=== PATIENT | male | born 1960 | race Caucasian/White ===

== ENCOUNTER → 2017-07-22 | Outpatient (CLI) | payer OTHER ==
[~2017-07-22] MED LIST: IOPAMIDOL (ISOVUE-300) 100 ML BTL ONE
== END ==
LOC: FIMAGING 07:41
PROVIDERS: ATTEND Specialist
DX: K80.20 Calculus of gallbladder without cholecystitis without obstruction (principal); M51.27 Other intervertebral disc displacement, lumbosacral region; Z87.442 Personal history of urinary calculi; Z87.440 Personal history of urinary (tract) infections
CPT/HCPCS: Q9967

== ENCOUNTER 2017-08-17 07:41 | Emergency (ER) | payer OTHER ==
[2017-08-17 07:46] VITALS: O2SAT 97
[2017-08-17] MEDS ORDERED: HYDROmorphONE/DILAUDID 1 MG/ML INJ IVP ONE ×3 (09:12→10:47)
[2017-08-17] MEDS ORDERED: NS 1,000 ML IV ONE (09:12)
[2017-08-17 09:40] LABS: PLATELET COUNT 241 10^3/uL (150-400)
[2017-08-17 10:15] VITALS: RESP 18
[2017-08-17] MEDS ORDERED: HYDROmorphONE/DILAUDID 1 MG/ML INJ ONE (10:39)
[2017-08-17] MEDS ORDERED: GADOBUTROL 10 ML VIAL IVP ONE (10:54)
[2017-08-17] MEDS ORDERED: DEXAMETHASONE 10 MG/ML VIAL IVP ONE (11:50)
[2017-08-17] MEDS ORDERED: OXYCODONE/APAP 5/325MG PREPACK#4 BTL TAKEHOME ONE (11:58)
[2017-08-17] MEDS: KETOROLAC 30 MG/1 ML SDV IVP ONE ×2 (11:58→12:01)
[2017-08-17 12:01] VITALS: BP 138/84; PULSE 72; TEMP 98.6
--- NOTE | 2017-08-17 12:01 | EDPHY ---
H & P Stated Complaint: Has chronic neck problems;exacerbated~3wks;took coarse of steroids w/relie - Personal History Current Tetanus Diphtheria and Acellular Pertussis (TDAP): Yes Tetanus Vaccine Date: within last 10 years - Medical/Surgical History Hx Asthma: No Hx Chronic Respiratory Disease: No Hx Diabetes: No Hx Cardiac Disease: No Hx Renal Disease: No Hx Cirrhosis: No Hx Alcoholism: No Hx HIV/AIDS: Yes Hx Splenectomy or Spleen Trauma: No Other PMH: depression, hiv +. herniated disk in neck. GERD - Social History Smoking Status: Current every day smoker HPI/ROS: Chief complaint: Neck pain with radiation of pain to the left arm History of present illness: This is a 57-year-old male who presents to the emergency department for evaluation of neck pain. Reports he has a history of herniated disc in his neck. He has been a year since he last had problems with his neck pain. The pain began again approximately 3 weeks ago. Reports pain and numbness radiating into his left arm. He denies any specific precipitating factors. He denies alleviating factors. His primary care doctor did put him on a Medrol Dosepak when this 1st began but did not help. He denies other associated signs or symptoms including no history of recent trauma, no fevers, no paresthesias in the parts of body, no weakness or paralysis, bowel or bladder dysfunction. Review of systems: A 10 point review of systems was obtained and other than described above was negative (Alcon Moncada) - Physical Exam Exam: General Appearance: Alert, nontoxic. Eyes: Pupils equal and round no pallor or injection. ENT, Mouth: Mucous membranes moist. Respiratory: There are no retractions, lungs are clear to auscultation. Cardiovascular: Regular rate and rhythm. Gastrointestinal: Abdomen is soft and non tender, no masses, bowel sounds normal. Neurological: Alert and oriented x4. Cranial nerves 2-12 grossly intact. Strength and sensation appears intact in the upper and lower extremities bilaterally. Upper extremity reflexes are trace bilaterally, they are symmetrical. Skin: Warm and dry, no rashes. Musculoskeletal: Neck is supple non tender. Extremities are symmetrical, full range of motion. Psychiatric: Patient is oriented X 3, there is no agitation. (Alcon Moncada) Constitutional: Initial Vital Signs Temperature (C) 36.5 C 08/17/17 07:43 Heart Rate 71 08/17/17 07:43 Respiratory Rate 16 08/17/17 07:43 Blood Pressure 151/102 H 08/17/17 07:43 O2 Sat (%) 97 08/17/17 07:43 O2 Delivery Mode Room Air Allergies/Adverse Reactions: No Known Allergies Allergy (Verified 08/17/17 07:43) Home Medications: Medication Instructions Recorded Dolutegravir Sodium [Tivicay] 1 tab PO DAILY 11/13/15 Emtricitabine/Tenofov Alafenam 1 each PO 08/17/17 [Descovy 200-25 mg Tablet] Levomefolate Calcium 15 mg PO 08/17/17 [l-Methylfolate Calcium] Sulfamethox/Tmp 800/160 mg 1 tab PO 08/17/17 [Bactrim Ds] buPROPion [Wellbutrin 75mg (*)] 75 mg PO 08/17/17 oxyCODONE/APAP 5/325 [Percocet 1 tab PO Q6H #10 tab 08/17/17 5/325 (*)] Medical Decision Making - Diagnostics Imaging: Discussed imaging studies w/ sole rounder Radiologist ED Course/Re-evaluation: Patient is discussed with my secondary supervising physician Dr. Linh Moore. Patient presents to the emergency department for neck pain with radiation of symptoms in the left arm. MRI is obtained which shows some disc protrusion. I have reviewed the case with Dr. Bustamante. He is comfortable with patient being placed on prednisone and following up in clinic. Given recent use of steroids I will put him on a prolonged prednisone taper, he is also given pain medicine. He is referred to neurosurgery for further evaluation and care. Return precautions are given. Voiced understanding and agreement with plan. (Alcon Moncada) The patient was evaluated and managed by the physician assistant designer. I have reviewed this chart and I agree with the findings and plan of care as documented , as indicated by my signature. I am the secondary supervising physician. ( Linh Moore) Differential Diagnosis: Included but not limited to muscle sprain or strain, torticollis, herniated intervertebral disc, bony fracture, spinal cord abscess or lesion (Alcon Moncada) - Data Points Laboratory Results: Laboratory Results 08/17/17 09:33 08/17/17 09:33 Medications Given: Discontinued Medications Dexamethasone (Decadron Injection) 10 mg IVP EDNOW ONE Stop: 08/17/17 11:51 Last Admin: 08/17/17 11:58 Dose: 10 mg Hydromorphone HCl (Dilaudid) 1 mg IVP EDNOW ONE Stop: 08/17/17 09:13 Last Admin: 08/17/17 09:39 Dose: 1 mg Hydromorphone HCl (Dilaudid) 1 mg IVP EDNOW ONE Stop: 08/17/17 10:40 Last Admin: 08/17/17 10:47 Dose: 1 mg Hydromorphone HCl (Dilaudid) 1 mg IVP EDNOW ONE Stop: 08/17/17 10:48 Last Admin: 08/17/17 10:47 Dose: Not Given Sodium Chloride (Ns) 1,000 mls @ 0 mls/hr IV EDNOW ONE; Wide Open PRN Reason: Protocol Stop: 08/17/17 09:13 Last Admin: 08/17/17 09:38 Dose: 1,000 mls Ketorolac Tromethamine (Toradol) 30 mg IVP EDNOW ONE Stop: 08/17/17 11:51 Last Admin: 08/17/17 12:01 Dose: Not Given Oxycodone/Acetaminophen (Percocet 5/325mg Prepack#4) 1 btl TAKEHOME EDNOW ONE Stop: 08/17/17 11:59 Last Admin: 08/17/17 12:09 Dose: 1 btl Departure - Departure Disposition: Home, Routine, Self-Care Clinical Impression: Herniated cervical disc, Cervical radicular pain Condition: Good Instructions: Oxycodone/Acetaminophen (By mouth), Cervical Disc Herniation (ED) , Cervical Radiculopathy (ED) Additional Instructions: Follow-up with Neurosurgery for continued evaluation and care In addition You have been prescribed [Devon] for pain. [Devon] contains Tylenol , do not take extra Tylenol/acetaminophen/Apap with it. It is sedating. You can all Referrals: Marisela Chaney MD [Primary Care Provider] - As per Instructions Jaron Bustamante MD [Medical Doctor] - As per Instructions Prescriptions: oxyCODONE/APAP 5/325 [Percocet 5/325 (*)] 1 tab PO Q6H #10 tab
== END 2017-08-17 12:13 | disposition home or self-care (01) ==
DX: M50.10 Cervical disc disorder with radiculopathy, unspecified cervical region (principal); B20 Human immunodeficiency virus [HIV] disease; F17.200 Nicotine dependence, unspecified, uncomplicated; E86.9 Volume depletion, unspecified
CPT/HCPCS: 96374; A9585; J1100; J1170; J1885

== ENCOUNTER 2017-09-11 05:36 | Emergency (ER) | payer OTHER ==
[2017-09-11] MEDS ORDERED: KETOROLAC 30 MG/1 ML SDV IM ONE (06:23)
[2017-09-11] MEDS ORDERED: methylPREDNISolone 4 MG TAB PO ONE (06:23)
[2017-09-11] MEDS ORDERED: LIDOCAINE 5% 1 EA PATCH TD ONE (06:32)
--- NOTE | 2017-09-11 07:29 | EDPHY ---
H & P Stated Complaint: herniated disc in neck, pain Time Seen by Provider: 09/11/17 06:11 HPI/ROS: Chief Complaint: Neck pain HPI: 57-year-old male with a known disc herniation is cervical spine presenting with neck pain this morning. Patient states that he has been having worsening pain for the last 6 weeks. He was seen here and had an MRI on [place]. He has since followed up with his conference specialist who did a steroid injection which did not provide relief. He has been having persistent pain despite taking ibuprofen. This morning he woke up in his pain was quite severe. No new numbness or weakness. No fevers or chills. He is not dropping objects more frequently. Pain is about an 8/10. Is primarily on the left hand side. He is ambulating without difficulty. ROS: 10 point Review of Systems is negative except as noted in the HPI. Family History: [non-contributory] Physical Exam: Gen: [Awake], [Alert], [No Distress] HEENT: [ ] [Nose: no rhinorrhea] Eyes: [PERRLA], [EOMI] Mouth: [Moist mucosa] [] Neck: No midline tenderness, no soft tissue tenderness Chest: [nontender], [lungs clear to auscultation] Heart: [S1, S2 normal], [no murmur] Abd: [Soft], [non-tender], [no guarding] Back: [no CVA tenderness], [no] midline tenderness [] Ext: [no] edema, [non-tender] Skin: [no rash] Neuro: [CN II-XII intact], [Sensation grossly intact], Strength [5]/5 in [ bilateral] [upper and] [lower] extremities, 1+ symmetrical bilateral upper and lower deep tendon reflexes - Personal History Current Tetanus/Diphtheria Vaccine: Yes Tetanus Vaccine Date: within last 10 years - Medical/Surgical History Hx Asthma: No Hx Chronic Respiratory Disease: No Hx Diabetes: No Hx Cardiac Disease: No Hx Renal Disease: No Hx Cirrhosis: No Hx Alcoholism: No Hx HIV/AIDS: Yes Hx Splenectomy or Spleen Trauma: No Other PMH: depression, hiv +. herniated disk in neck. GERD - Social History Smoking Status: Former smoker Constitutional: Initial Vital Signs Temperature (C) 36.3 C 09/11/17 05:37 Heart Rate 88 09/11/17 05:37 Respiratory Rate 18 09/11/17 05:37 Blood Pressure 134/94 H 09/11/17 05:37 O2 Sat (%) 93 09/11/17 05:37 O2 Delivery Mode Room Air Allergies/Adverse Reactions: No Known Allergies Allergy (Verified 08/17/17 07:43) Home Medications: Medication Instructions Recorded Dolutegravir Sodium [Tivicay] 1 tab PO DAILY 11/13/15 Emtricitabine/Tenofov Alafenam 1 each PO 08/17/17 [Descovy 200-25 mg Tablet] Levomefolate Calcium 15 mg PO 08/17/17 [l-Methylfolate Calcium] buPROPion [Wellbutrin 75mg (*)] 75 mg PO 08/17/17 IBUPROFEN 09/11/17 Neurontin 09/11/17 Medical Decision Making ED Course/Re-evaluation: I have given the patient 5 mg of Medrol, 30 mg of Toradol IM and a Lidoderm patch. He now states he feels 100% better. He is without any pain at all. Plan will be to discharge with follow-up with his spine doctors. He has been instructed that he can apply a new Lidoderm patch daily. These are available [id number]. - Data Points Medications Given: Lidocaine (Lidoderm 5%) 1 ea TD DAILY KJ Stop: 03/10/18 08:59 Last Admin: 09/11/17 06:36 Dose: 1 ea Discontinued Medications Ketorolac Tromethamine (Toradol) 30 mg IM EDNOW ONE Stop: 09/11/17 06:24 Last Admin: 09/11/17 06:36 Dose: 30 mg Methylprednisolone (Medrol) 4 mg PO EDNOW ONE Stop: 09/11/17 06:24 Last Admin: 09/11/17 06:46 Dose: 4 mg Departure - Departure Disposition: Home, Routine, Self-Care Clinical Impression: Neck pain Condition: Good Instructions: Neck Pain (ED) Additional Instructions: You may replace the Lidoderm patch every day. These are available over-the- counter at the pharmacy. Continue taking ibuprofen as prescribed by your spine doctor. Follow up with final doctor in 2-3 days for further evaluation. Return emergency depart for worsening pain, fevers or chills, new numbness or weakness, or any other concerns. Referrals: Marisela Chaney MD [Primary Care Provider] - As per Instructions
[2017-09-11 07:49] VITALS: BP 126/82; PULSE 71; RESP 16; TEMP 98.6; O2SAT 97
[2017-09-11] MEDS ORDERED: LIDOCAINE 5% 1 EA PATCH TD SCH (09:00)
[2017-09-11] MEDS ORDERED: PATCH REMOVAL 1 EA PATCH TD SCH (21:00)
== END 2017-09-11 07:49 | disposition home or self-care (01) ==
DX: M54.2 Cervicalgia (principal); B20 Human immunodeficiency virus [HIV] disease; Z87.891 Personal history of nicotine dependence
CPT/HCPCS: J1885

== ENCOUNTER 2018-06-28 11:08 | Emergency (ER) | payer OTHER ==
[2018-06-28 11:18] VITALS: BP 147/112
--- NOTE | 2018-06-28 11:21 | EDPHY ---
H & P Stated Complaint: lac to l thumb cut with boxcutter Time Seen by Provider: 06/28/18 11:19 HPI/ROS: HPI: This is a 58-year-old male who presents with Chief Complaint: Laceration to left thumb with coin box inspector Location: Left thumb Quality: Laceration Duration: 30 min prior to arrival Signs and Symptoms: + bleeding, no radiation, no numbness, no weakness, no tingling, no incontinence, no decreased range of motion, no swelling, + pain, no fever Timing: Acute Severity: 12/01 Context: Patient is ambidextrous, presents with accidentally cutting his left thumb at the base with a coin box inspector prior to arrival. He reports that he felt mild, constant, nonradiating pain. The injury started to bleed immediately. He applied direct pressure and still continued to ooze. Denies radiation, weakness, paresthesias. Unsure of tetanus status. He reports continued good range of motion. Modifying Factors: Direct pressure Comment: ROS: A comprehensive 10 system review of systems is otherwise negative aside from elements mentioned in the history of present illness. MEDICAL/SURGICAL/SOCIAL HISTORY: Medical history: depression, hiv +, herniated disk in neck, GERD Surgical history: Denies Social history: Single. Employed. CONSTITUTIONAL: Slightly anxious, adult white male, awake and alert, no obvious distress HEENT: Atraumatic and normocephalic. NECK: supple EXTREMITIES: 2/2 pulses, strength 5/5, left thumb 3 cm, vertical, simple, superficial laceration between the PIP and MCP joints. DIP/PIP/MCP flexion/ extension intact with good light touch sensation. no deformities, no clubbing, no cyanosis or edema. NEUROLOGICAL: no focal neuro deficits. GCS 15. Light touch sensation intact. SKIN: Warm and dry, no erythema. no rash. Good capillary refill. Source: Patient Exam Limitations: No limitations - Personal History Current Tetanus Diphtheria and Acellular Pertussis (TDAP): Yes Tetanus Vaccine Date: within last 10 years - Medical/Surgical History Hx Asthma: No Hx Chronic Respiratory Disease: No Hx Diabetes: No Hx Cardiac Disease: No Hx Renal Disease: No Hx Cirrhosis: No Hx Alcoholism: No Hx HIV/AIDS: Yes Hx Splenectomy or Spleen Trauma: No Other PMH: depression, hiv +. herniated disk in neck. GERD - Social History Smoking Status: Former smoker Constitutional: Initial Vital Signs Temperature (C) 36.7 C 06/28/18 11:15 Heart Rate 75 06/28/18 11:15 Respiratory Rate 18 06/28/18 11:15 Blood Pressure 147/112 H 06/28/18 11:15 O2 Sat (%) 95 06/28/18 11:15 O2 Delivery Mode Room Air Allergies/Adverse Reactions: No Known Allergies Allergy (Verified 06/28/18 11:14) Home Medications: Medication Instructions Recorded Dolutegravir Sodium [Tivicay] 1 tab PO DAILY 11/13/15 Emtricitabine/Tenofov Alafenam 1 each PO 08/17/17 [Descovy 200-25 mg Tablet] Medical Decision Making Procedures: Procedure: Laceration repair. Verbal consent was obtained from the patient. The 3 cm, vertical laceration on the left thumb was anesthetized in the usual fashion using 5 mL of 1% lidocaine without epinephrine. The wound was irrigated, draped and explored to its base with a gloved finger. There were no deep structures involved. No tendon injury was identified. The wound was repaired with #5, 5 0 Prolene in simple interrupted pattern. Good hemostasis was achieved and patient tolerated procedure well. Clean sterile dressing applied. The procedure was performed by myself. ED Course/Re-evaluation: Tetanus booster given. Local anesthesia provided, copiously irrigated, laceration repaired, clean sterile dressing applied Verbal and written wound care instructions provided No signs of neurovascular compromise/tenting of skin/compartment syndrome/ extremities and joints examined above and below area of concern and are neurovascularly intact. This patient was seen under the supervision of my secondary supervising physician. I evaluated care for this patient independently. Discussed this patient with Dr. Hamilton. Differential Diagnosis: Differential diagnosis includes but is not limited to laceration, nerve injury, tendon injury. Departure - Departure Disposition: Home, Routine, Self-Care Clinical Impression: Laceration of left thumb without complication Qualifiers: Encounter type: initial encounter Qualified Code(s): S61.012A - Laceration without foreign body of left thumb without damage to nail, initial encounter Condition: Good Instructions: Care For Your Stitches (ED), Laceration (ED) Additional Instructions: Keep the dressing dry and in place for 48 hours. After 48 hours, you may remove the dressing; wash the site daily with mild soap and water; then pat dry. Take Tylenol 650 mg every 4 hours and/or Ibuprofen 600 mg every 8 hours with food as needed for pain. Wound Care Follow-Up: Removal of sutures in [10-14] days. Suture removal is complimentary in uncomplicated cases. Infection or abnormal findings would require reevaluation by the MD. In that case, you may be billed. Return to the ER immediately if you experience new or worsening pain, discoloration, numbness, tingling, or any other symptoms that concern you. Referrals: Marisela Chaney MD [Primary Care Provider] - As per Instructions Zee Mendoza MD [Medical Doctor] - As per Instructions
[2018-06-28] MEDS ORDERED: TDAP ADULT 0.5 ML INJ (BOOSTRIX) IM ONE (11:22)
== END 2018-06-28 12:04 | disposition home or self-care (01) ==
PROC: 0HQGXZZ Repair Left Hand Skin, External Approach (ICD-10-PCS; principal; 2018-06-28)
DX: S61.012A Laceration without foreign body of left thumb without damage to nail, initial encounter (principal); Y28.8XXA Contact with other sharp object, undetermined intent, initial encounter; Z23 Encounter for immunization; Z87.891 Personal history of nicotine dependence; Z21 Asymptomatic human immunodeficiency virus [HIV] infection status